=== PATIENT | male | born 1955 | race Caucasian/White ===

== ENCOUNTER 2017-11-30 08:47 | Emergency (ER) | payer BC ==
[~2017-11-30] VITALS: Ht 180.3 cm; Wt 99.8 kg
[~2017-11-30 08:47] MED LIST: HYZAAR 50-12.5 T1 EA PO; MEGA MULTI FOR1 EAC1 PO; NASACORT10.8 ML NAS; NORCO 5-325 TA1 EACH PO; OMEPRAZOLE20 MG PO; SIMVASTATIN40 MG PO
[2017-11-30] MEDS ORDERED: NAPROSYN500 MG PO (09:01)
[2017-11-30] MEDS ORDERED: CYCLOBENZAPRINE10 MG PO (09:01)
== END 2017-11-30 09:48 | disposition home or self-care (01) ==
LOC: ED 08:47
DX: M62.830 Muscle spasm of back (principal); Z79.899 Other long term (current) drug therapy
CPT/HCPCS: 96372; 99283; J1885

== ENCOUNTER 2019-04-20 07:05 | Day surgery (SDC) | payer BC ==
[~2019-04-20] VITALS: Ht 180.3 cm; Wt 90.7 kg
[~2019-04-20 07:05] MED LIST changes: +CYCLOBENZAPRINE10 MG PO; +NAPROSYN500 MG PO
--- NOTE | 2019-04-20 09:15 | NUR ---
04/20/19 0915 Shayy Jacques 0911 PATIENT ARRIVES TO PACU AWAKE, BUT DROWSY. ANSWERS QUESTIONS APPROPRIATELY. RESP EVEN AND UNLABORED, NC OFF.
--- NOTE | 2019-04-20 10:47 | NUR ---
PT ALERT, ORIENTED AND SEEMED VERY PLEASANT TO VISIT WITH. HIS FAMILY WILL BE IN TO TAKE HIM HOME. PT SEEMED PREPARED, DAY OF PREP SEEMED TO REALLY BE UNEVENTFUL. EXTENDED A BLESSING, WILL FOLLOW NEEDED
--- NOTE | 2019-04-21 06:37 | OR ---
[facility] [address], [place] [address] Signed DATE OF OPERATION: 04/20/2019 SURGEON: Narda Negron MD PREOPERATIVE DIAGNOSES: 1. Screening. 2. Diverticulosis. 3. Internal hemorrhoids. 4. Small hyperplastic polyp at 25 cm in 2008. POSTOPERATIVE DIAGNOSES: 1. Zhzcrui-xx-ytloqvmj sigmoid diverticulosis. 2. 4 mm polyp at 42 cm. 3. Minimal internal hemorrhoids. PROCEDURE PERFORMED: Colonoscopy with hot biopsy. ESTIMATED BLOOD LOSS: None. INDICATIONS: Arash is a 63-year-old gentleman, who came to us in 2008 for his colonoscopy. At age 53, he had some diverticulosis along with internal hemorrhoids. We removed a tiny hyperplastic polyp up at 25 cm. He has no lower GI complaints currently. There is no family history of colon cancer or polyps. He returns for his followup colonoscopy. I gave Arash a pamphlet on colonoscopy and we reviewed the nature of the test along with the risks including, but not limited to gas, bloating, crampy abdominal pain, bleeding, perforation, requiring surgery, and missed diagnosis. We also discussed the need for IV conscious sedation. He had expressed understanding and wished to proceed. DESCRIPTION OF PROCEDURE: Arash was taken into our endoscopy suite and placed in the left lateral decubitus position. He was given IV sedation with 8 mg of Versed and 100 mcg of fentanyl. A digital rectal exam was performed and this was unremarkable. The adult colonoscope was introduced and advanced all around into the cecum under direct visualization of camera without difficulty. His prep was good. The scope was slowly withdrawn. We took pictures throughout for photodocumentation. The appendiceal orifice, ileocecal valve and the yurok's foot was unremarkable. We saw just a tiny polyp at 42 cm. It was easily removed with the help of hot biopsy forceps. He also has diverticula. They were Electronically Signed By: NARDA NEGRON MD 04/21/19 0637 PATIENT NAME: KELVIN CONNER OPERATIVE REPORT DATE OF : 59 REPORT #: [id number] PHYSICIAN: NARDA NEGRON MD PCP: CIARA TORO DO REPORT IS CONFIDENTIAL AND NOT TO BE RELEASED WITHOUT AUTHORIZATION [facility] [address], [place] [address] Signed awhtcot-xj-auhnnuao in size, wjdbqkh-hy-aawhtcqi in number, and scattered about the sigmoid colon. The rectum was unremarkable. Upon retroflexion of scope, he has very minimal internal hemorrhoid tissue. The gas was then suctioned out. The colonoscope removed. Arash tolerated procedure quite well. RECOMMENDATIONS: I will see Arash back in my office in 7 to 14 days to review his results. MD TOO Martinez/JUVEL /[id number] cc: DO Narda Romero MD Copies: CIARA TORO ANDREW L MD ~ Electronically Signed By: NARDA NEGRON MD 04/21/19 0637 PATIENT NAME: KELVIN CONNER OPERATIVE REPORT DATE OF : 59 REPORT #: [id number] PHYSICIAN: NARDA NEGRON MD PCP: CIARA TORO DO REPORT IS CONFIDENTIAL AND NOT TO BE RELEASED WITHOUT AUTHORIZATION
== END 2019-04-20 09:45 | disposition home or self-care (01) ==
LOC: DS 07:05 → OPS 07:05 → DS 08:15 → OPS 08:15
PROVIDERS: Colon & Rectal Surgery
PROC: 0DBE8ZZ Excision of Large Intestine, Via Natural or Artificial Opening Endoscopic (ICD-10-PCS; principal; 2019-04-20 08:15)
DX: Z12.11 Encounter for screening for malignant neoplasm of colon (principal); D12.6 Benign neoplasm of colon, unspecified; K57.30 Diverticulosis of large intestine without perforation or abscess without bleeding; K64.8 Other hemorrhoids; I10 Essential (primary) hypertension; E78.5 Hyperlipidemia, unspecified; Z86.010 Personal history of colon polyps; Z98.890 Other specified postprocedural states; Z87.891 Personal history of nicotine dependence; Z79.899 Other long term (current) drug therapy
CPT/HCPCS: 99153; G0500; J2250; J3010; J7120